=== PATIENT | female | born 1960 | race Caucasian/White ===

== ENCOUNTER → 2018-01-10 | Outpatient (CLI) | payer OTHER ==
--- NOTE | 2018-01-10 12:55 | KCIC ---
Bilateral digital screening mammograms: Reason for examination: Routine screening. Comparison is made to previous studies dated 04/21/2015 and 09/28/2009. Interpretation was made with the benefit of CAD. The skin and nipples show no abnormalities. No abnormal axillary lymph nodes are seen. The breast parenchyma is heterogeneously dense. (Breast density: Category C.) There appears to be some increased nodularity posterior laterally at the 9:30 C position of the right breast. Recommend further evaluation with coned compression views and ultrasound. There are no other dominant masses, suspicious calcifications or architectural distortion. Impression: Focal increased nodularity suggested posterior laterally at the 9:30 C position of the right breast. Recommend further evaluation with coned compression views and ultrasound. Your patient's mammogram demonstrates that she has dense breast tissue (breast density category C or D), which could hide abnormalities, and if she has other risk factors for breast cancer that have been identified, she might benefit from supplemental screening tests that may be suggested by you as her ordering physician. Dense breast tissue, in and of itself, is a relatively common condition. Therefore, this information is not provided to cause undue concern, but rather to raise your awareness and to promote discussion with your patient regarding the presence of other risk factors, in addition to dense breast tissue. Your patient's mammography results will be sent to her. BI-RAD Category 0: Incomplete. Needs additional imaging evaluation. "Our facility is accredited by the [employer] Mammography [employer]." This patient's information has been entered into a reminder system for the patient to be notified with the results of her examination and a target date for the next mammogram. Electronically signed by: Maricruz Hartley MD (01/10/2018 12:52 PM) [facility]
== END | disposition home or self-care (01) ==
LOC: KCIC MAMMO 09:54
PROVIDERS: ATTEND Obstetrics & Gynecology
DX: Z12.31 Encounter for screening mammogram for malignant neoplasm of breast (principal)
CPT/HCPCS: 77067

== ENCOUNTER → 2019-04-14 | Outpatient (CLI) | payer OTHER ==
--- NOTE | 2019-04-14 12:52 | KCIC ---
EXAM: Bilateral screening mammogram. HISTORY: 58-year-old female presents for screening mammography. The patient did not return for additional imaging requested at the time of her prior screening mammogram on 01/10/2018. TECHNIQUE: Full-field digital craniocaudal and mediolateral oblique views of both breasts are obtained for evaluation. Computer aided detection with [employer] software version 9.3 was applied. COMPARISON: 01/10/2018 BREAST PARENCHYMAL DENSITY: Level C - Heterogeneously dense. FINDINGS: There is nodular asymmetry within the posterior superior aspect of the right breast. There is no architectural distortion or suspicious calcifications within either breast. IMPRESSION: BI-RADS Category 0: Additional imaging needed. RECOMMENDATION: Further evaluation with a full field true lateral view and exaggerated craniocaudal view of the right breast and spot compression craniocaudal view of nodular asymmetry within the posterior lateral breast is recommended. Sonographic imaging can also be performed if deemed indicated based on mammographic findings. If your mammogram demonstrates that you have dense breast tissue, which could hide abnormalities, and if you have other risk factors for breast cancer that have been identified, you might benefit from supplemental screening tests that may be suggested by your ordering physician. Dense breast tissue, in and of itself, is a relatively common condition. This information is not provided to cause undue concern, but rather to raise your awareness and to promote discussion with your physician regarding the presence of other risk factors, in addition to dense breast tissue. A report of your mammography results will be sent to you and your physician. You should contact your physician if you have any questions or concerns regarding this report. Mammography is a sensitive method for finding small breast cancers, but it does not detect them all and is not a substitute for careful clinical examination. A negative mammogram does not negate a clinically suspicious finding and should not result in delay in biopsying a clinically suspicious abnormality. PQRS compliance statement - Patient information was entered into a reminder system with a target due date for the next mammogram. "Our facility is accredited by the [employer]amm[employer]." Electronically signed by: Shantel Israel MD (04/14/2019 12:48 PM) [facility]
== END | disposition home or self-care (01) ==
LOC: KCIC MAMMO 10:52
PROVIDERS: ATTEND Obstetrics & Gynecology
DX: Z12.31 Encounter for screening mammogram for malignant neoplasm of breast (principal)
CPT/HCPCS: 77067

== ENCOUNTER → 2019-05-08 | Outpatient (CLI) | payer OTHER ==
--- NOTE | 2019-05-08 11:40 | KCIC ---
Right breast diagnostic digital mammograms: Reason for examination: Parenchymal density. Follow-up exam. Comparison is made to previous studies dated 04/14/2019, 01/10/2018 and 04/21/2015. Additional lateral, CC view and coned compression CC views were obtained of the right breast with attention to the area of concern posterior laterally. With these additional views, there is still a small parenchymal asymmetry posterior laterally this however appears to be stable mammographically when compared to 2018. This likely represents a patchy of asymmetry but will be followed with ultrasound. IMPRESSION: Nodular asymmetry persists posterior laterally on the CC view but with no suspicious abnormality seen on the lateral view; compression views would suggest this to be normal fibroglandular tissue. Further evaluation however with ultrasound will follow. BI-RADS Category 0: Incomplete. Needs additional imaging evaluation. Right breast ultrasound: Ultrasound examination of the right breast and axilla was performed with attention to the area of mammographic concern. There is a focal of bronchial of dense fibroglandular tissue at the 10:00 position 7 cm from the nipple measuring 14 mm in size. This would appear to correspond with the area of mammographic concern. This has a benign appearance but recommend close follow-up with reevaluation in 6 months with ultrasound. IMPRESSION: 14 mm focal lobule of dense fibroglandular tissue at the 10:00 position appears to to correlate with the area of mammographic concern. This has a benign appearance but recommend reevaluation in 6 months with ultrasound. BI-RADS Category 3: Probably Benign. "Our facility is accredited by the [employer]amm[employer]." This patient's information has been entered into a reminder system for the patient to be notified with the results of her examination and a target date for the next mammogram. Electronically signed by: Maricruz aHrtley MD (05/08/2019 11:37 AM) [facility]
--- NOTE | 2019-05-08 11:40 | KCIC ---
Right breast diagnostic digital mammograms: Reason for examination: Parenchymal density. Follow-up exam. Comparison is made to previous studies dated 04/14/2019, 01/10/2018 and 04/21/2015. Additional lateral, CC view and coned compression CC views were obtained of the right breast with attention to the area of concern posterior laterally. With these additional views, there is still a small parenchymal asymmetry posterior laterally this however appears to be stable mammographically when compared to 2018. This likely represents a patchy of asymmetry but will be followed with ultrasound. IMPRESSION: Nodular asymmetry persists posterior laterally on the CC view but with no suspicious abnormality seen on the lateral view; compression views would suggest this to be normal fibroglandular tissue. Further evaluation however with ultrasound will follow. BI-RADS Category 0: Incomplete. Needs additional imaging evaluation. Right breast ultrasound: Ultrasound examination of the right breast and axilla was performed with attention to the area of mammographic concern. There is a focal of bronchial of dense fibroglandular tissue at the 10:00 position 7 cm from the nipple measuring 14 mm in size. This would appear to correspond with the area of mammographic concern. This has a benign appearance but recommend close follow-up with reevaluation in 6 months with ultrasound. IMPRESSION: 14 mm focal lobule of dense fibroglandular tissue at the 10:00 position appears to to correlate with the area of mammographic concern. This has a benign appearance but recommend reevaluation in 6 months with ultrasound. BI-RADS Category 3: Probably Benign. "Our facility is accredited by the [employer] Mammography [employer]." This patient's information has been entered into a reminder system for the patient to be notified with the results of her examination and a target date for the next mammogram. Electronically signed by: Maricruz Hartley MD (05/08/2019 11:37 AM) [facility]
== END | disposition home or self-care (01) ==
LOC: KCIC MAMMO 09:46
PROVIDERS: ATTEND Obstetrics & Gynecology
DX: N63.10 Unspecified lump in the right breast, unspecified quadrant (principal)
CPT/HCPCS: 76641; 77065

== ENCOUNTER → 2019-12-15 | Outpatient (CLI) | payer OTHER ==
--- NOTE | 2019-12-15 12:01 | KCIC ---
EXAM: Right breast sonogram. HISTORY: 59-year-old female presents for evaluation of suspected dense fibroglandular tissue at the 10:00 position of the right breast demonstrated on a mammogram and sonogram dated 05/08/2019. TECHNIQUE: Sonographic imaging of the right breast targeted to the 10:00 position was performed. COMPARISON: 05/08/2019. FINDINGS: There has been no change in a 1.3 cm focus of hyperechogenicity at the 10:00 position 7 cm from the nipple. This demonstrates no internal blood blood flow. There are focally dilated ducts within the 12:00 retroareolar location. No new sonographic lesion is seen. IMPRESSION: 1. Stable 1.3 cm hyperechoic focus within the 10:00 position of the right breast 7 cm from the nipple. The stability and absence of blood flow favors benignity. 2. BI-RADS Category 3: Probably benign finding(s). Repeat short-term sonographic follow-up in 5 months is recommended to confirm longer-term stability and correspond with the previously established bilateral mammography interval. Electronically signed by: Shantel Israel MD (12/15/2019 11:58 AM) [facility]
== END | disposition home or self-care (01) ==
LOC: KCIC US 10:49
PROVIDERS: ATTEND Nurse Practitioner
DX: R92.2 Inconclusive mammogram (principal)
CPT/HCPCS: 76641